=== PATIENT | female | born 1995 | race Caucasian/White ===

== ENCOUNTER 2025-05-29 13:20 | Emergency (ER) | payer BC ==
[~2025-05-29] VITALS: Ht 172.7 cm; Wt 95.1 kg
[2025-05-29 13:40] VITALS: BP 123/81; PULSE 81; RESP 18; TEMP 97.8; O2SAT 100
[2025-05-29 15:18] LABS: MEAN PLATELET VOLUME 8.4 FL (7.4-10.4); RED CELL DISTRIBUTION WIDTH 13.0 % (11.5-14.5)
[2025-05-29 15:36] LABS: CREATININE 0.65 MG/DL (0.40-0.90); TOTAL CARBON DIOXIDE 27.7 MMOL/L (24-32); eCRCL 130 ML/MIN; eGFR > 90 ML/MIN
--- NOTE | 2025-05-29 15:58 | Physician Documentation ---
History of Present Illness ~ Chief Complaint: Headache Stated Complaint: HEAD PAIN WITH NUMBNESS Time Seen by MD: 16:48 HPI This is a 30-year-old female with a history of migraine who presents with four days of left-sided headache with nausea and numbness/tingling to right neck, side, and leg along with intermittent numbness/tingling to bilateral hands. Patient reports headache is consistent with typical migraine symptoms however it is not resolving with rest and ovzz-krj-[id number] medications which typically resolve her migraines and the numbness/tingling are new. Patient describes the numbness and or tingling as like when your arm falls asleep. Patient reports no weakness, facial droop, or difficulty speaking. Patient reports light sensitivity though no vision changes. Reports no other acute symptoms or concerns. Medication Reconciliation Allergies: Coded Allergies: No Known Allergies (Unverified , 05/29/25) Scheduled Ibuprofen (Ibuprofen), 1 TAB PO Q8H Scheduled PRN Metoclopramide Hcl* (Metoclopramide Hcl*), 1 TAB PO Q6H PRN for nausea/vomiting Past Medical History Past Medical History: Migraine Review of Systems ROS As stated above in the HPI, otherwise all systems are reviewed and negative. Physical Exam Vital Signs: Temperature: 97.8, Source: Temporal, Heart Rate: 81, Respiratory Rate: 18, BP: 123/81, Pulse Oximetry: 100, Weight: 95.100 Physical Exam VITALS: Reviewed and as above. GENERAL: Alert, nontoxic appearing, no apparent distress. HEENT: PERRLA, EOMI RESPIRATORY: No increased work of breathing, no respiratory distress, speaking in full clear sentences NEURO: No upper extremity weakness, no pronator drift, walking with steady unassisted gait, no facial droop, clear speech Progress Results/Orders Results/Orders Completed Orders - ZEHRA ENNIS PROCESS CONTROL TECH Cbc/Diff (05/29/25 14:55) BMP (05/29/25 14:55) Vital Signs 05/29/25 13:40 Temp 97.8 Pulse 81 Resp 18 B/P (MAP) 123/81 Pulse Ox 100 Laboratory Tests Test 05/29/25 15:09 White Blood Count 10.1 Red Blood Count 5.05 Hemoglobin 15.0 Hematocrit 43.6 Mean Corpuscular Volume 86.2 Mean Corpuscular Hemoglobin 29.7 Mean Corpuscular Hemoglobin Concent 34.4 Red Cell Distribution Width 13.0 Platelet Count 241 Mean Platelet Volume 8.4 Neutrophils (%) (Auto) 65.0 Lymphocytes (%) (Auto) 26.4 Monocytes (%) (Auto) 7.5 Eosinophils (%) (Auto) 0.7 Basophils (%) (Auto) 0.4 Neutrophils # (Auto) 6.6 Lymphocytes # (Auto) 2.7 Monocytes # (Auto) 0.8 Eosinophils # (Auto) 0.1 Basophils # (Auto) 0.0 CBC Comment Sodium Level 140 Potassium Level 3.8 Chloride Level 104 Carbon Dioxide Level 27.7 Anion Gap 8 Blood Urea Nitrogen 14 Creatinine 0.65 Estimated GFR/1.73 m2 > 90 BUN/Creatinine Ratio 21.5 H Glucose Level 81 Calcium Level 9.4 Albumin 4.2 Chemistry Comments Medical Decision Making Additional information obtaine: N/A Findings This 30 year-old female with a history of migraines presented with migraine symptoms lasting for four days not relieved with rest and ufyi-zhb-pzlvhik medications which typically resolve her headaches, patient reports additional in termittent paresthesias in her right side and intermittently in bilateral hands which are new symptoms. Patient's reports that she would not like to wait for additional workup, in careful shared decision-making patient will be prescribed medication for migraine symptoms and discharged to follow up with the primary care provider, I did advise patient that further workup is recommended for a paresthesias in her limbs though at this time based on a normal neurologic exam I have low suspicion for CVA or mass. Patient has been advised she may return to the emergency department at any time and has been provided careful return to care precautions, follow up instructions and home care instructions which he verbalized understanding of. Differential Dx:Considerations: Include: PEREZ-Cluster, PEREZ-Migraine, PEREZ- Hypertensive, PEREZ-Muscular contraction, Close head injuyr, CVA, Hemorrhage- Epidural, Hemorrhage-Intracerebral, Hemorrhage-Subarachnoid, Hemorrhage- Subdural, Mass lesion, Meningitis, Pseudotumor cerebri, Sinusitis, Temporal arteritis, Trigeminal neuralgia Departure Time of Disposition: 16:50 Disposition: 01 HOME / SELF CARE / HOMELESS Impression: Primary Impression: Headache Qualified Codes: R51.9 - Headache, unspecified Condition: Improved Discharge Instructions: Chronic Migraine Headache, Eoxl-yh-Hlap Additional Instructions: The numbness and tingling in your arms is concerning however the rest of your exam was reassuring, your labs were within normal limits I recommend you follow up with your primary care provider for a referral to neurologist for further management of your migraine symptoms. Please use the prescribed high-dose ibuprofen and Reglan for migraine headache and nausea. Please follow up with your primary care provider in the next few days. If you change your mind about further workup please return to the emergency department. Please return to the emergency department for any new or worsening concerning symptoms including but not limited to new weakness or numbness, worsening symptoms, or vision changes. Referrals: NO PRIMARY CARE PROVIDER (PCP) Prescriptions Ibuprofen (Ibuprofen) 800 Mg Tablet 1 TAB PO Q8H for pain for 10 Days, #30 TAB 0 Refills Prov: ZEHRA ENNIS 05/29/25 Metoclopramide Hcl* (Metoclopramide Hcl*) 10 Mg Tablet 1 TAB PO Q6H PRN for nausea/vomiting for 5 Days, #20 TAB Prov: ZEHRA ENNIS 05/29/25 Education Educated: Patient, Family Educated regarding: diagnosis, treatment, prognosis, need for follow up Signature Scribe Signature: No scribe Attestation: The note accurately reflects work and decisions made by me.RICARDA Salgado 05/30/25 01:14 Parts of this note were created using [employer] voice recognition software program. While efforts were made to correct any mistakes made by this voice recognition software program, nonsensical phrases may remain in this note. In addition, there may be errors and syntax, grammar, content and spelling. ZEHRA ENNIS May 29, 2025 15:58
[2025-05-29] MEDS ORDERED: IBUP-1986 PO (16:54)
[2025-05-29] MEDS ORDERED: METO10TA3 PO (16:54)
== END 2025-05-29 17:08 | disposition home or self-care (01) ==
LOC: ER 13:21
DX: G43.909 Migraine, unspecified, not intractable, without status migrainosus (principal); Z79.899 Other long term (current) drug therapy
CPT/HCPCS: 36415; 80048; 85025; 99283